=== PATIENT | male | born 1975 | race Caucasian/White ===

== ENCOUNTER 2018-08-11 09:54 | Emergency (ER) | payer MEDICARE, MEDICAID ==
[2018-08-11 10:00] VITALS: BP 112/69
[2018-08-11] MEDS ORDERED: ALBUTEROL NEB 2.5 MG/3 ML INH STA (10:37)
--- NOTE | 2018-08-11 10:48 | ED Physician Documentation ---
History of Present Illness - Stated complaint Stated Complaint: COUNGESTED - Chief complaint Chief Complaint: Resp - History obtained from History obtained from: Patient - History of Present Illness Timing: How many days ago (2) Pain level max: 6 Pain level now: 6 - Additonal information Additional information: 43-year-old male presents to the emergency department with runny nose, cough and congestion for the past 2-3 days. States feels like it is been hard to breathe for the past 2 days. Has not used inhalers in the past. Does not smoke. He is visiting from [place]. Nothing makes it better or worse. No leg swelling. Is currently on Augmentin for a dental infection Review of Systems Constitutional: denies: Fever, Chills GI: denies: Vomiting, Diarrhea Skin: denies: Rash Musculoskeletal: denies: Neck pain, Back pain Neurologic: denies: Headache PD PAST MEDICAL HISTORY - Past Medical History Past Medical History: Yes Musculoskeletal: Chronic back pain - Past Surgical History Past Surgical History: Yes - Present Medications Home Medications: Ambulatory Orders Medication Instructions Recorded Confirmed Albuterol Sulf [Ventolin Hfa 1 - 2 puffs INH Q4HR PRN #1 inhaler 08/11/18 Inhaler] Amoxicillin/Potassium Clav 1 08/11/18 [Amox-Clav 875-125 mg Tablet] Atorvastatin [Lipitor] 1 08/11/18 Citalopram [CeleXA] 1 08/11/18 Hydrocodone/Acetaminophen 1 - 2 each PO Q6H PRN #10 tablet 08/11/18 [Hydrocodon-Acetaminophen 5-325] Tizanidine HCl [Zanaflex] 1 08/11/18 Zonisamide [Zonegran] 1 08/11/18 - Allergies Allergies/Adverse Reactions: Allergies Allergy/AdvReac Type Severity Reaction Status Date / Time No Known Drug Allergies Allergy Verified 08/11/18 09:59 - Social History Does the pt smoke?: No Smoking Status: Never smoker PD ED PE NORMAL - Vitals Vital signs reviewed: Yes - General General: Alert and oriented X 3, No acute distress, Well developed/nourished - HEENT HEENT: PERRL, Ears normal, Moist mucous membranes, Other (Mild posterior oropharyngeal erythema without tonsillar exudates. Mild cobblestoning) - Neck Neck: Supple, no meningeal sign - Cardiac Cardiac: RRR - Respiratory Respiratory: No respiratory distress, Other (Mild diminished breath sounds bilaterally) - Abdomen Abdomen: Soft, Non tender, Non distended - Derm Derm: Warm and dry - Neuro Neuro: Alert and oriented X 3 - Psych Psych: Normal mood, Normal affect Results - Vitals Vitals: Vital Signs - 24 hr 08/11/18 08/11/18 09:58 10:50 Temperature 36.9 C Heart Rate 103 H 76 Respiratory 20 18 Rate Blood Pressure 112/69 O2 Saturation 99 Oxygen O2 Source Room air - Rads (name of study) Chest x-ray Radiology: Prelim report reviewed, EMP read contemporaneously, See rad report (normal) PD MEDICAL DECISION MAKING - ED course Complexity details: reviewed results, re-evaluated patient, considered differential, d/w patient ED course: 43-year-old male with what appears to be a viral upper respiratory infection. Feels better after nebulizer treatment. Will prescribe inhalers for home as well as a small amount of pain medication for him to help with the cough and sleeping. Also to help with the chest pain from coughing. Patient is well- appearing, nontoxic. Afebrile. No hypoxia or respiratory distress. Patient counseled regarding signs and symptoms for which I believe and urgent re- evaluation would be necessary. Patient with good understanding of and agreement to plan and is comfortable going home at this time This document was made in part using voice recognition software. While efforts are made to proofread this document, sound alike and grammatical errors may occur. Departure - Departure Disposition: 01 Home, Self Care Clinical Impression: Upper respiratory tract infection Qualifiers: URI type: unspecified viral URI Qualified Code(s): J06.9 - Acute upper respiratory infection, unspecified Condition: Good Instructions: ED Viral Syndrome Follow-Up: Grady Colon MD [Primary Care Provider] - Within 1 week Prescriptions: Albuterol Sulf [Ventolin Hfa Inhaler] 1 - 2 puffs INH Q4HR PRN #1 inhaler PRN Reason: Shortness Of Air/Wheezing Hydrocodone/Acetaminophen [Hydrocodon-Acetaminophen 5-325] 1 - 2 each PO Q6H PRN #10 tablet PRN Reason: pain Comments: Go home and rest. Drink plenty of fluids. Return if you worsen. Do not drink alcohol or drive while on narcotic pain medicine. Note that many narcotic pain relievers also contain tylenol/acetaminophen. Please ensure that your total dose of acetaminophen from all sources does not exceed 3 grams (3000mg) per day. You may constipated on this medication, take a stool softener such as "Colace" twice a day while you are on it. Also recommend a [id number] laxative such as senna or MiraLAX any day that you do not have a bowel movement. If you received narcotic pain medication in the emergency department, do not drive or operate machinery for the next 24 hours. Discharge Date/Time: 08/11/18 11:41
--- NOTE | 2018-08-11 11:06 | XRAY Report ---
Reason: cough Procedure Date: 08/11/2018 Accession Number: [id number] / [id number] Procedure: XR - Chest 2 View X-Ray CPT Code: 35653 FULL RESULT: EXAM: CHEST RADIOGRAPHY EXAM DATE: 08/11/2018 10:48 AM. CLINICAL HISTORY: Cough. COMPARISON: None. TECHNIQUE: 2 views. FINDINGS: The heart size appears normal. No pulmonary consolidation or edema. No costal phrenic angle blunting. Thoracic stimulator lead at the T7-T9 level. IMPRESSION: 1. No acute cardiopulmonary process. RADIA
== END 2018-08-11 11:41 | disposition home or self-care (01) ==
LOC: ED 09:54
DX: J06.9 Acute upper respiratory infection, unspecified (principal); B97.89 Other viral agents as the cause of diseases classified elsewhere; R07.9 Chest pain, unspecified
CPT/HCPCS: 71046; 94640; 99283